=== PATIENT | male | born 1955 | race Caucasian/White ===

== ENCOUNTER 2023-09-06 08:39 | Inpatient (IN) | payer MEDICARE, OTHER ==
[2023-09-06] MEDS ORDERED: OXYMETAZOLINE HCL NASAL SPRAY 30 ML BOTTLE NS ONE (11:34)
[2023-09-06] MEDS ORDERED: LIDOCAINE 2%-EPI 1:100,000 30 ML VIAL ONE (11:34)
[2023-09-06] MEDS ORDERED: dexaMETHasone SOD PHOSPHATE 1 ML ONE (11:34)
[2023-09-06] MEDS ORDERED: VANCOMYCIN 1 GM VIAL ONE (11:35)
[2023-09-06] MEDS ORDERED: IV NS 0.9% 1,000 ML IV PRN (14:30)
[2023-09-06] MEDS ORDERED: HYDROMORPHONE 1 MG/1 ML DISP.SYRIN IV PRN (14:30)
[2023-09-06] MEDS ORDERED: ACETAMINOPHEN 325 MG TABLET PO PRN (14:30)
[2023-09-06] MEDS ORDERED: ONDANSETRON HCL/PF 4 MG/2 ML VIAL IVP PRN (14:30)
== END 2023-09-06 17:30 | disposition home or self-care (01) | DRG 141 ==
LOC: DS 08:39 → MED 13:48
PROVIDERS: ADMIT Nurse Practitioner Family; ATTEND Nurse Practitioner Family
PROC: 0NSV04Z Reposition Left Mandible with Internal Fixation Device, Open Approach (ICD-10-PCS; principal; 2023-09-06)
PROC: 0NBV0ZX Excision of Left Mandible, Open Approach, Diagnostic (ICD-10-PCS; 2023-09-06)
PROC: 0NBT0ZX Excision of Right Mandible, Open Approach, Diagnostic (ICD-10-PCS; 2023-09-06)
PROC: 0NST0ZZ Reposition Right Mandible, Open Approach (ICD-10-PCS; 2023-09-06)
PROC: 0NUT07Z Supplement Right Mandible with Autologous Tissue Substitute, Open Approach (ICD-10-PCS; 2023-09-06)
DX: S02.609B Fracture of mandible, unspecified, initial encounter for open fracture (principal); I96 Gangrene, not elsewhere classified; D16.5 Benign neoplasm of lower jaw bone; M27.2 Inflammatory conditions of jaws; E11.9 Type 2 diabetes mellitus without complications; E78.5 Hyperlipidemia, unspecified; M19.90 Unspecified osteoarthritis, unspecified site; N40.0 Benign prostatic hyperplasia without lower urinary tract symptoms; M27.40 Unspecified cyst of jaw; X58.XXXA Exposure to other specified factors, initial encounter; Y92.9 Unspecified place or not applicable; T81.83XD Persistent postprocedural fistula, subsequent encounter
CPT/HCPCS: 82962-TC; 88305-TC; 88312-TC; C1713; G0378; J0461; J0690; J1100; J2704; J3370; J3490

== ENCOUNTER 2024-01-31 07:38 | Inpatient (IN) | payer MEDICARE, OTHER ==
[~2024-01-31] VITALS: Ht 172.7 cm; Wt 99.8 kg
[~2024-01-31 07:38] MED LIST: LIDOCAINE 2%-EPI 1:100,000 30 ML VIAL ONE; OXYMETAZOLINE HCL NASAL SPRAY 30 ML BOTTLE NS ONE; VANCOMYCIN 1 GM VIAL ONE; dexaMETHasone SOD PHOSPHATE 1 ML ONE
[2024-01-31] MEDS ORDERED: MIDAZOLAM HCL 2 MG/2ML VIAL ONE (08:40)
[2024-01-31] MEDS ORDERED: FENTANYL PF 100MCG/2ML AMPUL ONE (08:40)
[2024-01-31] MEDS ORDERED: HYDROMORPHONE 1 MG/1 ML DISP.SYRIN IV PRN (12:00)
[2024-01-31] MEDS ORDERED: ONDANSETRON HCL/PF 4 MG/2 ML VIAL IVP PRN (12:00)
[2024-01-31] MEDS ORDERED: IV NS 0.9% 1,000 ML IV PRN (12:00)
[2024-01-31] MEDS ORDERED: ACETAMINOPHEN 325 MG TABLET PO PRN (12:00)
[2024-01-31] MEDS ORDERED: VANCOMYCIN 1 GM in IV D5W 250ml IV SCH (21:00)
== END 2024-01-31 15:45 | disposition left against medical advice (07) | DRG 908 ==
LOC: DS 07:38 → MED 11:18
PROVIDERS: ADMIT Dentist Oral and Maxillofacial Surgery; ATTEND Dentist Oral and Maxillofacial Surgery
PROC: 0N5V0ZZ Destruction of Left Mandible, Open Approach (ICD-10-PCS; principal; 2024-01-31)
PROC: 0NPW07Z Removal of Autologous Tissue Substitute from Facial Bone, Open Approach (ICD-10-PCS; 2024-01-31)
PROC: 0NHV04Z Insertion of Internal Fixation Device into Left Mandible, Open Approach (ICD-10-PCS; 2024-01-31)
PROC: 0NHT04Z Insertion of Internal Fixation Device into Right Mandible, Open Approach (ICD-10-PCS; 2024-01-31)
PROC: 0NBT0ZX Excision of Right Mandible, Open Approach, Diagnostic (ICD-10-PCS; 2024-01-31)
DX: T86.831 Bone graft failure (principal); T84.7XXA Infection and inflammatory reaction due to other internal orthopedic prosthetic devices, implants and grafts, initial encounter; M19.90 Unspecified osteoarthritis, unspecified site; N40.0 Benign prostatic hyperplasia without lower urinary tract symptoms; Y92.9 Unspecified place or not applicable; E11.9 Type 2 diabetes mellitus without complications; E78.5 Hyperlipidemia, unspecified; Z53.29 Procedure and treatment not carried out because of patient's decision for other reasons; Y83.2 Surgical operation with anastomosis, bypass or graft as the cause of abnormal reaction of the patient, or of later complication, without mention of misadventure at the time of the procedure; Y83.8 Other surgical procedures as the cause of abnormal reaction of the patient, or of later complication, without mention of misadventure at the time of the procedure
CPT/HCPCS: 82962-TC; G0378; J0330; J1100; J1885; J2250; J2405; J2704; J3010; J3370; J3490; J7060

== ENCOUNTER 2024-11-13 08:01 | Inpatient (IN) | payer MEDICARE, OTHER ==
[~2024-11-13] VITALS: Ht 170.2 cm; Wt 103.5 kg
[2024-11-13] MEDS ORDERED: NEOSTIGMINE METHYLSULFATE INJ 1 MG/ML VIAL ONE (09:25)
[2024-11-13] MEDS ORDERED: VANCOMYCIN 1 GM VIAL ONE (09:25)
[2024-11-13] MEDS ORDERED: LIDOCAINE 2%-EPI 1:100,000 30 ML VIAL ONE (09:25)
[2024-11-13] MEDS ORDERED: dexaMETHasone SOD PHOSPHATE 1 ML ONE (09:25)
[2024-11-13] MEDS ORDERED: OXYMETAZOLINE HCL NASAL SPRAY 30 ML BOTTLE NS ONE (09:28)
[2024-11-13] MEDS ORDERED: LIDOCAINE 2% JEL UROJET 10 ML MM ONE (10:03)
[2024-11-13] MEDS ORDERED: FENTANYL PF 100MCG/2ML AMPUL ONE (10:03)
[2024-11-13] MEDS ORDERED: Magnesium 1 GM/2 ML VIAL ONE (10:03)
[2024-11-13] MEDS ORDERED: FAMOTIDINE/PF INJ 20 MG/2 ML VIAL IV ONE (10:04)
[2024-11-13] MEDS ORDERED: ROCURONIUM BROMIDE 50 MG/5 ML ONE (10:04)
[2024-11-13] MEDS ORDERED: MIDAZOLAM HCL 2 MG/2ML VIAL ONE (10:04)
[2024-11-13] MEDS ORDERED: SUGAMMADEX SODIUM 200 MG/2 ML VIAL IV ONE (11:20)
[2024-11-13] MEDS ORDERED: LABETALOL HCL IV 100MG VIAL IV PRN (11:30)
[2024-11-13] MEDS ORDERED: HYDROMORPHONE 1 MG/1 ML DISP.SYRIN IV PRN (11:30)
[2024-11-13] MEDS ORDERED: ACETAMINOPHEN 325 MG TABLET PO PRN (13:00)
[2024-11-13] MEDS ORDERED: ONDANSETRON HCL/PF 4 MG/2 ML VIAL IV PRN (13:00)
[2024-11-13 14:00] VITALS: BP 185/84; TEMP 97; O2SAT 96
[2024-11-13] MEDS: IV NS 0.9% 1,000 ML IV PRN (14:19)
[2024-11-13] MEDS ORDERED: IBUPROFEN 600 MG TABLET PO PRN (15:00)
[2024-11-13] MEDS ORDERED: METF-442 PO (15:08)
[2024-11-13] MEDS ORDERED: ASPI-1169 PO (15:08)
[2024-11-13] MEDS: HYDROMORPHONE 1 MG/1 ML DISP.SYRIN IV PRN (15:14)
[2024-11-13 16:00] VITALS: BP 165/91; TEMP 98; O2SAT 95
[2024-11-13 17:15] VITALS: BP 159/79
[2024-11-13] MEDS ORDERED: TRAM50TA2 PO (18:37)
[2024-11-13] MEDS ORDERED: DAPA10TA PO (18:37)
[2024-11-13] MEDS ORDERED: AMOX1TAB16 PO (18:37)
[2024-11-13 20:00] VITALS: BP 165/95; TEMP 97.3; O2SAT 96
[2024-11-13] MEDS: TRAMADOL HCL 50 MG TABLET PO PRN (20:32)
[2024-11-13] MEDS: DAPAGLIFLOZIN PROPANEDIOL 10 MG TABLET PO SCH (21:02)
[2024-11-13] MEDS: VANCOMYCIN 1 GM in IV D5W 250ml IV SCH (21:06)
[2024-11-13 22:30] VITALS: BP 135/67; TEMP 97.3; O2SAT 95
[2024-11-14 07:30] VITALS: BP 113/59; TEMP 97.2; O2SAT 97
[2024-11-14] MEDS: METFORMIN 500 MG TABLET PO SCH (08:29)
[2024-11-14] MEDS: ASPIRIN 81 MG TAB.CHEW PO SCH (08:29)
== END 2024-11-14 10:30 | disposition home or self-care (01) | DRG 141 ==
LOC: DS 08:01 → MED 14:47
PROVIDERS: ADMIT Internal Medicine; ATTEND Internal Medicine
PROC: 0NSR04Z Reposition Maxilla with Internal Fixation Device, Open Approach (ICD-10-PCS; 2024-11-13)
PROC: 09BR0ZZ Excision of Left Maxillary Sinus, Open Approach (ICD-10-PCS; 2024-11-13)
PROC: 09BQ0ZZ Excision of Right Maxillary Sinus, Open Approach (ICD-10-PCS; 2024-11-13)
PROC: 0NUR07Z Supplement Maxilla with Autologous Tissue Substitute, Open Approach (ICD-10-PCS; 2024-11-13)
PROC: 09UR07Z Supplement Left Maxillary Sinus with Autologous Tissue Substitute, Open Approach (ICD-10-PCS; 2024-11-13)
PROC: 09UQ07Z Supplement Right Maxillary Sinus with Autologous Tissue Substitute, Open Approach (ICD-10-PCS; 2024-11-13)
PROC: 0NU Head and Facial Bones, Supplement (ICD-10-PCS; 2024-11-13)
PROC: 0N5R0ZZ Destruction of Maxilla, Open Approach (ICD-10-PCS; principal; 2024-11-13 09:55)
DX: S02.40DA Maxillary fracture, left side, initial encounter for closed fracture (principal); M87.9 Osteonecrosis, unspecified; S02.82XA Fracture of other specified skull and facial bones, left side, initial encounter for closed fracture; S02.81XA Fracture of other specified skull and facial bones, right side, initial encounter for closed fracture; M27.2 Inflammatory conditions of jaws; S02.40CB Maxillary fracture, right side, initial encounter for open fracture; D16.5 Benign neoplasm of lower jaw bone; I10 Essential (primary) hypertension; M19.90 Unspecified osteoarthritis, unspecified site; E11.9 Type 2 diabetes mellitus without complications; N40.0 Benign prostatic hyperplasia without lower urinary tract symptoms; Z79.84 Long term (current) use of oral hypoglycemic drugs; Z79.82 Long term (current) use of aspirin; Z79.899 Other long term (current) drug therapy; X58.XXXA Exposure to other specified factors, initial encounter; Y92.9 Unspecified place or not applicable; D16.4 Benign neoplasm of bones of skull and face; J01.00 Acute maxillary sinusitis, unspecified; E11.69 Type 2 diabetes mellitus with other specified complication; J34.1 Cyst and mucocele of nose and nasal sinus; M27.40 Unspecified cyst of jaw
CPT/HCPCS: 82962-TC; 88305-TC; 88311-TC; A4223; A4338; C1713; G0378; J1100; J1171; J1308; J2250; J2405; J2704; J3010; J3373; J3475; J3490; J7030; J7060